=== PATIENT | male | born 1950 | race Caucasian/White ===

== ENCOUNTER → 2021-09-08 08:55 | Outpatient (BNVA) | payer MEDICARE, SELFPAY | PROVIDERS: Visit Provider Family Medicine | DX: I10 Essential (primary) hypertension (principal); Z12.5 Encounter for screening for malignant neoplasm of prostate | CPT/HCPCS: 80053; 80061; 84153; 85025 ==

== ENCOUNTER → 2022-02-24 09:36 | Outpatient (BNVA) | payer MEDICARE, SELFPAY | PROVIDERS: PCP Family Medicine; Visit Provider Internal Medicine Cardiovascular Disease | DX: I25.10 Atherosclerotic heart disease of native coronary artery without angina pectoris (principal); R07.89 Other chest pain; I10 Essential (primary) hypertension; I73.9 Peripheral vascular disease, unspecified; E78.5 Hyperlipidemia, unspecified; Z87.891 Personal history of nicotine dependence | CPT/HCPCS: 99204; 99205 ==

== ENCOUNTER 2022-07-12 12:15 | Outpatient (CLI) | payer MEDICARE, SELFPAY ==
--- NOTE | 2022-07-12 12:45 | USCV_ITS ---
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 TBI of 0.63 on the right and 0.56 on the left CONCLUSIONS Features suggestive of mild peripheral artery disease bilaterally. Dr Freddie Nair MD [facility] (Electronically Signed) Final Date: 12 July 2022 23:42 S
== END 2022-07-12 12:16 | disposition home or self-care (01) ==
LOC: RAD 12:17
PROVIDERS: PCP Family Medicine; Visit Provider Internal Medicine Cardiovascular Disease
DX: I73.9 Peripheral vascular disease, unspecified (principal)
CPT/HCPCS: 93922

== ENCOUNTER 2022-07-21 08:04 | Outpatient (CLI) | payer MEDICARE, SELFPAY ==
--- NOTE | 2022-07-21 | ECG_ITS ---
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 Interpretive Statements NAME OF STUDY: LEXISCAN SESTAMIBI STRESS TEST INDICATION: [cp] Procedure: At the baseline, the blood pressure was 155/78 mmHg with a heart rate of 64 bpm. The electrocardiogram showed normal sinus rhythm, normal axis with normal ST and T's. The Lexiscan was infused over a period of 20 seconds. A total of 0.4 mg of Lexiscan was infused. The stress phase was continued for a total of 5 minutes. Heart rate was at the end of stress phase was 90 bpm and a blood pressure of 144/75 mmHg. The EKG at the peak infusion revealed normal sinus rhythm with no significant ST-T wave changes. Sestamibi was injected 20 seconds after the Lexiscan infusion. Blood pressure at the end of recovery phase was 143/79 mmHg with a heart rate of 78 bpm. Conclusion: 1. Normal EKG response to Lexiscan infusion 2. No Lexiscan induced chest pain or cardiac arrhythmia. 3. Normal blood pressure and heart rate response. 4. Sestamibi/sestamibi perfusion scan pending; see separate report. Electronically Signed On 07-31-2022 20:59:27 CDT by Lester Sena M.D. [email or web address]
[2022-07-21 08:39] VITALS: BMI 33.8
--- NOTE | 2022-07-21 08:51 | NMCV_ITS ---
NM eufemia perf SPECT r/s* [id number] Dionisio Agarwal Age: 71 Gender: M : 1950 Exam Date: 07/21/2022 09:46 Ordering Phys: Pebbles Dominguez DO Technologist: SHONDA Dick Exam Location: [facility] Indications: CHEST PAIN STRESS TEST Please see separate stress test report in [facility]any for full findings IMAGE PROTOCOL Rest/Stress 1 Lexiscan Day Radiopharmaceutical Dose (mCi) Administration Site Administered by Rest: Tc-99m 11.0 IV SHONDA Quiroz Sestamibi Stress:Tc-99m 32.4 IV SHONDA Quiroz Sestamibi Rest: 21-Jul-2022 60 Discovery 630 Stress: 21-Jul-2022 30 Discovery 630 0.4mg Lexiscan. Images obtained in supine and prone position. SPECT RESULTS Technical Quality: Excellent Raw Data Analysis: Normal Image Corrections: No attenuation or motion correction applied Summed Stress Score: 3 Summed Rest Score: 0 Summed Difference Score: 3 PERFUSION FINDINGS There is a small in size reversible perfusion defect in inferolateral wall. This is consistent with small sized area of ischemia in left circumflex artery territory. FUNCTIONAL RESULTS (calculated via Gated SPECT) Stress Image LV EF (%): 74 Stress EDV (mL):80 TID: 1.2 Stress ESV (mL):21 FUNCTIONAL FINDINGS: There is normal left ventricular systolic function. IMPRESSIONS 1. Small sized area of ischemia seen in left circumflex artery territory. 2. LV systolic function is normal. Lester Sena MD (Electronically Signed) Final Date: 24 July 2022 22:12 S
[2022-07-21 10:41] VITALS: BP 143/79; PULSE 77
[2022-07-21] MEDS: regadenoson 0.4 Mg/5 ml Syringe IVP (10:43)
== END 2022-07-21 08:05 | disposition home or self-care (01) ==
PROVIDERS: Family Provider Internal Medicine Cardiovascular Disease; PCP Family Medicine; Visit Provider Family Medicine
DX: R07.9 Chest pain, unspecified (principal); I99.8 Other disorder of circulatory system
CPT/HCPCS: 78452; 93017; A9500; J2785

== ENCOUNTER → 2022-08-06 09:45 | Outpatient (BNVA) | payer MEDICARE, SELFPAY | PROVIDERS: Family Provider Internal Medicine Cardiovascular Disease; PCP Family Medicine; Visit Provider Internal Medicine Cardiovascular Disease | DX: I25.10 Atherosclerotic heart disease of native coronary artery without angina pectoris (principal); I10 Essential (primary) hypertension; E78.5 Hyperlipidemia, unspecified; I73.9 Peripheral vascular disease, unspecified; Z87.891 Personal history of nicotine dependence | CPT/HCPCS: 99214 ==

== ENCOUNTER 2023-03-18 09:43 | Outpatient (CLI) | payer MEDICARE, SELFPAY ==
--- NOTE | 2023-03-18 10:00 | CT_ITS ---
WS: [id number] LDCT LUNG CANCER SCREENING HISTORY: Former smoker TECHNIQUE: Axial imaging performed from the apices to 1 cm below the costophrenic angles. Coronal and sagittal reformats are submitted with axial MIP series. All CT scans at [facility] use at least one of these dose optimization techniques: automated exposure control; mA and/or kV adjustment per patient size (includes targeted exams where dose is matched to clinical indication); or iterativ e reconstruction. DLP: 80.79 mGy.cm DIvol: Mean CTDIvol: 1.60 (mGy) COMPARISON: None available. Diagnostic quality: Satisfactory Lungs: No pulmonary nodule or mass identified. Mild chronic emphysema. No endobronchial lesions. Heart: Normal size heart with no pericardial effusion.. Other findings: Mild atherosclerosis aorta. Normal size pulmonary artery. No adenopathy. Moderate cor onary artery calcification. Heavy calcification along the LEFT anterior descending coronary artery. S mall hiatal hernia. No adrenal mass. CT/CT lung screening [id number] IMPRESSION: LUNG-RADS: 1-Negative FOLLOW UP: 12 Month: Continue annual screening with LDCT OTHER FINDINGS (S MODIFIER): None.
== END 2023-03-18 09:44 | disposition home or self-care (01) ==
PROVIDERS: PCP Family Medicine; Visit Provider Internal Medicine Pulmonary Disease
DX: I25.10 Atherosclerotic heart disease of native coronary artery without angina pectoris (principal); E78.5 Hyperlipidemia, unspecified; I73.9 Peripheral vascular disease, unspecified; R07.89 Other chest pain; I10 Essential (primary) hypertension; Z87.891 Personal history of nicotine dependence
CPT/HCPCS: 71271; 99214

== ENCOUNTER 2023-05-29 16:26 | Emergency (ER) | payer MEDICARE, SELFPAY ==
[2023-05-29 16:35] VITALS: PULSE 138; RESP 16; TEMP 36.7; O2SAT 93; BMI 34.4
--- NOTE | 2023-05-29 16:41 | ED_ITS ---
HPI - Epistaxis General: Chief complaint: Epistaxis Stated complaint: nose bleeding for hours Time Seen by Provider: 05/29/23 16:41 History of Present Illness: 72-year-old gentleman on 81 mg of aspirin daily with history of nose surgery for polyp removal remotely presenting to the [facility] part for epistaxis. Began yesterday morning and always has been on the right. Appears to have had intermittent control however it has been bleeding profusely for the past few hours. Mild generalized malaise with it. Denies trauma though he has been instructed by ENT to do rinses. Denies any changes with that. No other specific changes in health, exacerbating, or alleviating factors identified. Onset (ago): hour(s) Duration: intermittent Review of Systems General: Reports: 10 or more systems reviewed and unremarkable except in HPI and below PFSH ED PFSH: Medical History Asthma CAD (coronary artery disease) Essential hypertension History of placement of stent in LAD coronary artery Hyperlipidemia PAD (peripheral artery disease) S/P angiogram of extremity Surgical History History of sinus surgery Family History Mother Asthma Alcoholic Liver cirrhosis Father Cancer stomach Sister Stroke Brother Diabetes Other Hypertension Social History Smoking and tobacco status: former smoker Quit status (tobacco): has quit using tobacco Year quit tobacco: 2009 Former quit date comment: 1ppd x 50 years Second hand smoke exposure: No Alcohol intake: current Alcohol intake frequency: 0-2 Drinks per Day Alcohol t ype: beer and wine Substance/Drug Use: never Adopted: No Caregiver/support person: No Lives independently: Yes Household members: spouse Housing: House Marital status: Number of children: 2 Highest education level completed: High School Graduate service: No Current occupational status: disabled Pets and animals: Yes Pets & animals: dog(s) Sexually active: Yes Do you think of yourself as: Straight/Heterosexual Current gender identity: Male Special ajay needs: No Physical Exam Const: COMMON NORMALS: alert GENERAL APPEARANCE: cooperative and well developed HENMT: COMMON NORMALS: normocephalic and atraumatic HEAD & SCALP: normocephalic and atraumatic OTHER: See MDM Eye: COMMON NORMALS: conjunctivae normal CONJUNCTIVA: Yes conjunctivae normal SCLERA: sclerae normal Neck/C-Spine: COMMON NORMALS: supple GENERAL: Yes trachea midline Resp: COMMON NORMALS: normal respiratory effort EFFORT & INSPECTION: Yes able to speak in complete sentences Cardio: COMMON NORMALS: regular rate and regular rhythm RATE: regular rate RHYTHM: regular rhythm GI: COMMON NORMALS: Soft to palpation PALPATION: Yes Soft to palpation and No Tenderness to palpation present (GI) Extremity: GENERAL: Yes normal exam except as noted and No edema Neuro: COMMON NORMALS: moves all extremities SENSORIUM/ORIENTATION: Yes alert and No Orientation impaired Psych: COMMON NORMALS: mental status grossly normal and Normal thought process present THOUGHT PROCESS: Normal thought process present Course Vital Signs: Vital signs: Vital Signs Temperature 98.1 F 05/29/23 16:35 Pulse Rate 82 05/29/23 18:37 Respiratory Rate 16 05/29/23 16:35 Blood Pressure 171/92 05/29/23 18:37 Pulse Oximetry 97 05/29/23 18:37 Oxygen Delivery Me thod Room Air 05/29/23 16:35 [facility] - Epistaxis Medical Decision Making 72-year-old gentleman presenting with epistaxis. He is noted to have severe right-sided epistaxis on exam. Initial conservative measures quickly became apparent to not have any effect. Therefore a Rhino Rocket was placed. This appears to have successful hemostasis. Labs with no significant hematologic or metabolic abnormalities. Coags normal. No occasion for imaging. Patient treated with antibiotic and analgesia. Hemostasis sustained on serial reexamination. The results of ED evaluation were discussed with the patient including prescriptions and/or symptomatic cares (if applicable) including appropriate and responsible use, followup plan, and return precautions. The patient verbalized understanding and felt safe for discharge. Medical Records I reviewed the patient's medical records. Lab Data I reviewed the patient's lab results. 05/29/23 17:05 05/29/23 17:05 Laboratory Results WBC 5.8 10^3/uL (4.0-10.0) 05/29/23 17:05 RBC 5.10 10^6/uL (4.1-5.3) 05/29/23 17:05 Hgb 15.4 g/dL (11.7-16.6) 05/29/23 17:05 Hct 46.4 % (42.0-52.0) 05/29/23 17:05 MCV 91.0 fl (80-94) 05/29/23 17:05 MCH 30.2 pg (28.0-34.0) 05/29/23 17:05 MCHC 33.2 g/dL (30.0-36.0) 05/29/23 17:05 RDW 12.9 % (12.1-15.1) 05/29/23 17:05 Plt Count 261 10^3/cmm (130-400) 05/29/23 17:05 MPV 9.0 fL (7.4-10.4) 05/29/23 17:05 Neut % (Auto) 61.2 % 05/29/23 17:05 Lymph % (Auto) 28.2 % 05/29/23 17:05 [place] % (Auto) 7.6 % 05/29/23 17:05 Eos % (Auto) 2.2 % 05/29/23 17:05 Baso % (Auto) 0.3 % 05/29/23 17:05 Neut # (Auto) 3.55 10^3/uL (1.8-7.7) 05/29/23 17:05 Lymph # (Auto) 1.6 10^3/uL (0.8-4.8) 05/29/23 17:05 [place] # (Auto) 0.4 10^3/uL (0.2-0.9) 05/29/23 17:05 Eos # (Auto) 0.1 10^3/uL (0.0-0.8) 05/29/23 17:05 Baso # (Auto) 0.0 10^3/uL (0.0-0.1) 05/29/23 17:05 Nucleated RBC % (auto) 0 % 05/29/23 17:05 Nucleated RBCs # 0.0 /100WBC 05/29/23 17:05 PT 13.60 SECONDS (12.1-14.9) 05/29/23 17:05 INR 1.01 (0.8-1.2) 05/29/23 17:05 Sodium 139 mmol/L (136-145) 05/29/23 17:05 Potassium 4.3 mmol/L (3.5-5.1) 05/29/23 17:05 Chloride 102 mmol/L (98-107) 05/29/23 17:05 Carbon Dioxide 25 mmol/L (22-29) 05/29/23 17:05 Anion Gap 16.3 (5-19) 05/29/23 17:05 BUN 12 mg/dL (8-23) 05/29/23 17:05 Creatinine 0.9 mg/dL (0.7-1.2) 05/29/23 17:05 GFR Calculation Not Reportable 05/29/23 17:05 Glucose 145 mg/dL (65-115) H 05/29/23 17:05 Calculated Osmolality 290 mOsm/kg (285-295) 05/29/23 17:05 Calcium 9.5 mg/dL (8.5-10.5) 05/29/23 17:05 Total Bilirubin 0.5 mg/dL (0.15-1.2) 05/29/23 17:05 AST 20 U/L (0-40) 05/29/23 17:05 ALT 19 U/L (0-41) 05/29/23 17:05 Alkaline Phosphatase 80 U/L (40-130) 05/29/23 17:05 Total Protein 7.1 g/dL (6.6-8.7) 05/29/23 17:05 Albumin 4.2 g/dL (3.5-5.2) 05/29/23 17:05 Globulin 2.9 g/dL (1.3-4.6) 05/29/23 17:05 Blood Type O Negative 05/29/23 17:05 Rho(D) Type Negative 05/29/23 17:05 Antibody Screen Negative 05/29/23 17:05 Discharge Plan Discharge Patient Disposition: Home Clinical Impression: Severe epistaxis Condition: Stable Prescriptions: No Action doxazosin 4 mg tablet 4 mg PO BID Qty: 180 3RF budesonide 0.5 mg/2 mL suspension for nebulization 0.5 mg inhalation BID Qty: 60 2RF Fasenra Pen 30 mg/mL auto-injector 30 mg SUBCUT .q 5 weeks Qty: 1 11RF Spiriva with HandiHaler 18 mcg capsule, w/inhalation device 1 cap inhalation DAILY Qty: 60 5RF Rx Instructions: puncture 1 cap using device; one dose = 2 inhalations nitroglycerin [Nitrostat] 0.4 mg tablet, sublingual 0.4 mg sublingual Q5M PRN (Reason: chest pain) Qty: 25 1RF Rx Instructions: do not exceed 3 doses per episode isosorbide mononitrate 10 mg tablet 10 mg PO DAILY PRN (Reason: elevted BP) Qty: 30 3RF Rx Instructions: Use if BP > 150/90 mm Hg, carvedilol 6.25 mg tablet 6.25 mg PO BID Qty: 180 2RF Rx Instructions: must administer with a meal/food fluticasone propion-salmeterol [Wixela Inhub] 500-50 mcg/dose blister with device 1 inh inhalation BID Qty: 60 5RF montelukast 10 mg tablet 10 mg PO DAILY Discharge Orders: Discharge ED (Routine); Ordered 05/29/23 Ordered By: Brandin Parks Referrals: Pebbles Dominguez DO [Primary Care Provider] - Discharge Diet: Usual diet Discharge Activity: Resume usual activity Patient Instructions: Nosebleed (ED) Activity Restrictions/Additional Instructions: Thank you for visiting the emergency department. You were seen and evaluated for severe nosebleed. This was treated with Rhino Rocket and we are pleased that you had control of your bleeding. Please call Dr. Topete's office in the morning for follow-up. Will prescribe prophylactic antibiotics. Avoid NSAIDs and you should stop aspirin for the next 5 day. You may use acetaminophen as long as nobody has told you to avoid this in the past. Return for recurrence or anything else that you are concerned about and feel needs emergency department evaluation. Coding Level of Care Code ED Pcb Design Engineer for Davion Mauricio
[2023-05-29] MEDS: oxymetazoline 0.05% Nasal Spray 15 mL 2 SPRAY NOSTRIL-B (16:54)
[2023-05-29 17:18] LABS: Basophils % 0.3 %; Eosinophils # 0.1 10^3/uL (0.0-0.8); Eosinophils % 2.2 %; Hematocrit 46.4 % (42.0-52.0); Hemoglobin 15.4 g/dL (11.7-16.6); Lymphocytes # 1.6 10^3/uL (0.8-4.8); Lymphocytes % 28.2 %; Mean Corpuscular HGB Conc 33.2 g/dL (30.0-36.0); Mean Corpuscular Hemoglobin 30.2 pg (28.0-34.0); Monocytes # 0.4 10^3/uL (0.2-0.9); Monocytes % 7.6 %; Neutrophils # 3.55 10^3/uL (1.8-7.7); Neutrophils % 61.2 %; Nucleated Red Blood Cells % 0 %; Platelet Count 261 10^3/cmm (130-400); Red Cell Distribution Width 12.9 % (12.1-15.1); White Blood Count 5.8 10^3/uL (4.0-10.0)
[2023-05-29] MEDS: sodium chloride 0.9% 1,000 ML 999 ML IV (17:44)
[2023-05-29] MEDS: morphine 4 mg/mL SDV 1 mL IVP (17:44)
[2023-05-29 17:51] LABS: Alanine Aminotransferase 19 U/L (0-41); Albumin Level 4.2 g/dL (3.5-5.2); Alkaline Phosphatase 80 U/L (40-130); Blood Urea Nitrogen 12 mg/dL (8-23); Calcium 9.5 mg/dL (8.5-10.5); Carbon Dioxide 25 mmol/L (22-29); Chloride 102 mmol/L (98-107); Globulin 2.9 g/dL (1.3-4.6); Glucose 145 mg/dL (65-115); Osmolality Calculated 290 mOsm/kg (285-295); Sodium 139 mmol/L (136-145); Total Bilirubin 0.5 mg/dL (0.15-1.2); Total Protein 7.1 g/dL (6.6-8.7)
[2023-05-29 17:52] LABS: Anion Gap 16.3 (5-19); Aspartate Amino Transferase 20 U/L (0-40); Potassium 4.3 mmol/L (3.5-5.1)
[2023-05-29 17:59] LABS: INR 1.01 (0.8-1.2)
[2023-05-29] MEDS: amoxicillin-clav 875-125 mg Tablet 1 TAB PO (18:21)
[2023-05-29 18:37] VITALS: BP 171/92; PULSE 82; O2SAT 97
== END 2023-05-29 18:39 | disposition home or self-care (01) ==
PROVIDERS: Emergency Provider Emergency Medicine; PCP Family Medicine
DX: R04.0 Epistaxis (principal)
CPT/HCPCS: 80053; 85025; 85610; 86850; 86900; 96374; 99284; J2270; J7030

== ENCOUNTER 2023-05-30 08:53 | Observation (INO) | payer MEDICARE, SELFPAY ==
[2023-05-30] VITALS (9 sets, daily range): BP systolic 132–210; BP diastolic 71–108; PULSE 72–126; RESP 16–20; TEMP 36.6–36.8; O2SAT 91–99; BMI 34.2
--- NOTE | 2023-05-30 09:46 | PC.NURSE ---
BILATERAL RHINO ROCKETS ATTEMPTED. RIGHT RHINO ROCKET PLACED SUCCESSFULL, LEFT RHINO ROCKET UNABLE TO PLACE DUE TO PREVIOUS SURGERY. PATIENT TOLERATED PROCEDURE WELL.
--- NOTE | 2023-05-30 10:20 | P.HP_ITS ---
Providers/Chief Complaint Admitting Physician: Dr. Luis Topete MD Otolaryngology, Head & Neck Surgery Primary Care Provider: Pebbles Dominguez DO Chief Complaint: nose bleed History of Present Illness Dionisio Agarwal is a 72 year old male who was well until yesterday when he developed spontaneous epistaxis from the right nostril. The patient was seen in the [facility] ER yesterday where he had a nasal pack placed. The patient was seen in my clinic this morning and was doing well - we planned to remove the packing in 3-5 days. The patient represented to the ER after his outpatient visit and I was consulted to assist in caring for Mr. Agarwal's nose bleed. The patient is o/w without c/o. He has a h/o prior nasal surgery for polyps in 2008 and takes a daily 81mg ASA after having a coronary stent placed several years ago. The patient is o/w without c/o. Review of Systems General: Reports: 10 or more systems reviewed and unremarkable except in HPI and below Medications/Allergies Home Medications Medication Instructions Recorded Confirmed Last Taken Type aspirin 81 mg tablet,delayed 81 mg PO DAILY 08/11/21 03/18/23 Unknown History release budesonide 0.5 mg/2 mL suspension 0.5 mg (2 mL) inhalation BID #60 mL 01/13/22 03/18/23 Unknown Rx for nebulization doxazosin 4 mg tablet 4 mg PO BID #180 tabs 08/06/22 03/18/23 Unknown Rx benralizumab 30 mg/mL subcutaneous 30 mg SUBCUT .q 5 weeks #1 mL 08/11/22 03/18/23 Unknown Rx auto-injector (Fasenra Pen) tiotropium bromide 18 mcg capsule 1 cap inhalation DAILY #60 02/21/23 03/18/23 Unknown Rx with inhalation device (Spiriva inhalations with HandiHaler) montelukast 10 mg tablet See Rx Instructions .Route 03/08/23 03/18/23 Unknown Rx .COMPLEX #90 tabs prednisone 5 mg tablet 5 mg PO DAILY PRN 03/18/23 03/18/23 Unknown History nitroglycerin 0.4 mg sublingual 0.4 mg sublingual Q5M PRN chest 03/22/23 Unknown Rx tablet (Nitrostat) pain #25 tabs isosorbide mononitrate 10 mg tablet 10 mg PO DAILY PRN elevted BP #30 03/25/23 Unknown Rx tabs carvedilol 6.25 mg tablet 6.25 mg PO BID #180 tabs 04/18/23 Unknown Rx fluticasone 500 mcg-salmeterol 50 1 inh inhalation BID #60 grams 05/26/23 Unknown Rx mcg/dose blistr powdr for inhalation (Wixela Inhub) amoxicillin 875 mg-potassium 1 tab PO BID #20 tabs 05/29/23 Unknown Rx clavulanate 125 mg tablet Allergies Allergy/AdvReac Type Severity Reaction Status Date / Time No Known Allergies Allergy Verified 05/29/23 16:35 PFSH Acute PFSH: Medical History Asthma CAD (coronary artery disease) Essential hypertension History of placement of stent in LAD coronary artery Hyperlipidemia PAD (peripheral artery disease) Surgical History History of sinus surgery Family History Mother Asthma Alcoholic Liver cirrhosis Father Cancer stomach Sister Stroke Brother Diabetes Other Hypertension Social History Smoking and tobacco status: former smoker Quit status (tobacco): has quit using tobacco Year quit tobacco: 2009 Former quit date comment: 1ppd x 50 years Second hand smoke exposure: No Alcohol intake: current Alcohol intake frequency: 0-2 Drinks per Day Alcohol type: beer and wine Substance/Drug Use: never Adopted: No Caregiver/support person: No Lives independently: Yes Household members: spouse Housing: House Marital status: Number of children: 2 Highest education level completed: High School Graduate service: No Current occupational status: disabled Pets and animals: Yes Pets & animals: dog(s) Sexually active: Yes Do you think of yourself as: Straight/Heterosexual Current gender identity: Male Special ajay needs: No Vitals/I&O/Wt Last Vital Signs Temp 98.2 F 05/30/23 09:01 Pulse 94 05/30/23 09:01 Resp 16 05/30/23 09:01 BP 175/92 05/30/23 09:01 Pulse Ox 96 05/30/23 09:01 O2 Del Method Room Air 05/30/23 09:01 Weight last 48 hrs Weight 84.822 kg A&P Assessment and plan (1) Severe epistaxis: Impression: Epistaxis, right sided, recurrent Plan: - Admit for observation - Rapid Rhino packing replaced with a standard double balloon pack that was filled with saline until the epistaxis stopped - TXA and pain meds given by Dr. Lainez - Hold ASA for now - O/W continue all preop medications - Stat CBC, CMP, and EKG Plan I was consulted to assist in controlling Mr. Agarwal's epistaxis. Attestations Medical Necessity Statement*: The patient was admitted for control of his epistaxis Coding Level of Care Code Acute Code for [facility] Fwd Diagnoses Severe epistaxis R04.0
[2023-05-30] MEDS: morphine 4 mg/mL SDV 1 mL IVP (10:27)
--- NOTE | 2023-05-30 10:37 | W.ED.EPISTAX ---
HPI - Epistaxis General: Chief complaint: Epistaxis Stated complaint: nose bleed Time Seen by Provider: 05/30/23 09:36 History of Present Illness: Patient presents to the ER with complaints of right-sided epistaxis. Patient does have a Rhino Rocket in. Patient presented to Dr. Nguyen's office earlier today where they gotten the bleeding to stop with any when he went to the pharmacy to get some pain medicine the bleeding started again and he came back here. Patient does have high blood pressure with a blood pressure 175/92. Patient has multiple clots on a towel and blood is dripping out of his nostril at a pretty good rate. Patient said he does not usually get nosebleeds. This nosebleed started yesterday when he had the Rhino Rocket placed and was better throughout the night but started bleeding again this morning. Patient does take an 81 mg aspirin for anticoagulation. Review of Systems General: Reports: 10 or more systems reviewed and unremarkable except in HPI and below PFSH ED PFSH: Medical History Asthma CAD (coronary artery disease) Essential hypertension History of placement of stent in LAD coronary artery Hyperlipidemia PAD (peripheral artery disease) Surgical History History of sinus surgery Family History Mother Asthma Alcoholic Liver cirrhosis Father Cancer stomach Sister Stroke Brother Diabetes Other Hypertension Social History Smoking and tobacco status: former smoker Quit status (tobacco): has quit using tobacco Year quit tobacco: 2009 Former quit date comment: 1ppd x 50 years Second hand smoke exposure: No Alcohol intake: current Alcohol intake frequency: 0-2 Drinks per Day Alcohol type: beer and wine Substance/Drug Use: never Adopted: No Caregiver/support person: No Lives independently: Yes Household members: spouse Housing: House Marital status: Number of children: 2 Highest education level completed: High School Graduate service: No Current occupational status: disabled Pets and animals: Yes Pets & animals: dog(s) Sexually active: Yes Do you think of yourself as: Straight/Heterosexual Current gender identity: Male Special ajay needs: No Physical Exam Const: COMMON NORMALS: no acute distress, patient oriented x3, no limitations, healthy appearing, alert and well nourished HENMT: COMMON NORMALS: normocephalic, atraumatic, hearing grossly normal bilaterally, external ears normal and Normal external nose present; nasal mucous membranes&turbinates abnorm (Copious amounts of bright red blood noted from the external nares region ar) HEAD & SCALP: normocephalic and atraumatic NOSE: Normal external nose present; nasal mucous membranes&turbinates abnorm (Copious amounts of bright red blood noted from the external nares region ar) EXTERNAL EAR: Yes external ears normal Neck/C-Spine: COMMON NORMALS: full ROM, no lymphadenopathy, supple, no meningeal signs, no JVD and Thyroid normal THYROID: Thyroid normal Chest: COMMONS NORMALS: normal inspection of the chest and normal palpation of entire chest wall Resp: COMMON NORMALS: normal respiratory effort, No retractions, No use of accessory muscles and clear to auscultation bilaterally AUSCULTATION: clear to auscultation bilaterally Cardio: COMMON NORMALS: no JVD, regular rate, regular rhythm, S1 normal heart sound present, S2 normal heart sound present, No gallops present (Cardio), No clicks present (Cardio), No murmurs present (Cardio) and No rub (Cardio) RATE: regular rate RHYTHM: regular rhythm HEART SOUNDS: S1 normal heart sound present and S2 normal heart sound present GI: COMMON NORMALS: Normal to inspection, nondistended, normoactive bowel sounds present, Soft to palpation, non-tender, No hepatosplenomegaly present and no masses PALPATION: Yes Soft to palpation and Yes No hepatosplenomegaly present Neuro: COMMON NORMALS: patient oriented x3 SENSORIUM/ORIENTATION: Yes alert MENINGEAL SIGNS: Yes no meningeal signs Course Vital Signs: Vital signs: Vital Signs Temperature 98.2 F 05/30/23 09:01 Pulse Rate 108 H 05/30/23 10:33 Respiratory Rate 17 05/30/23 10:27 Blood Pressure 210/108 05/30/23 10:33 Pulse Oximetry 91 05/30/23 10:33 Oxygen Delivery Me thod Room Air 05/30/23 10:33 MDM - Epistaxis Medical Decision Making Patient presents to the ER with a Rhino Rocket in place and a moderate epistaxis. Rhino Rocket was removed and a new one was placed with saline in both the anterior and posterior chambers of the Rhino Rocket to inflate it is much as patient can tolerate. Bleeding did slow down mildly but is definitely still bleeding a good amount. Dr. Topete ENT was consulted and came down to the ER and suction the nose and readjusted the Rhino Rocket. Patient will be given TXA. Lab work was obtained patient will be admitted to Dr. Topete Medical Records I reviewed the patient's medical records. Lab Data I reviewed the patient's lab results. 05/30/23 10:53 05/30/23 10:53 Laboratory Results WBC 6.3 10^3/uL (4.0-10.0) 05/30/23 10:53 RBC 4.07 10^6/uL (4.1-5.3) L 05/30/23 10:53 Hgb 12.3 g/dL (11.7-16.6) 05/30/23 10:53 Hct 37.1 % (42.0-52.0) L 05/30/23 10:53 MCV 91.2 fl (80-94) 05/30/23 10:53 MCH 30.2 pg (28.0-34.0) 05/30/23 10:53 MCHC 33.2 g/dL (30.0-36.0) 05/30/23 10:53 RDW 12.8 % (12.1-15.1) 05/30/23 10:53 Plt Count 201 10^3/cmm (130-400) 05/30/23 10:53 MPV 8.8 fL (7.4-10.4) 05/30/23 10:53 Neut % (Auto) 83.0 % 05/30/23 10:53 Lymph % (Auto) 11.4 % 05/30/23 10:53 [place] % (Auto) 4.9 % 05/30/23 10:53 Eos % (Auto) 0.0 % 05/30/23 10:53 Baso % (Auto) 0.2 % 05/30/23 10:53 Neut # (Auto) 5.23 10^3/uL (1.8-7.7) 05/30/23 10:53 Lymph # (Auto) 0.7 10^3/uL (0.8-4.8) L 05/30/23 10:53 [place] # (Auto) 0.3 10^3/uL (0.2-0.9) 05/30/23 10:53 Eos # (Auto) 0.0 10^3/uL (0.0-0.8) 05/30/23 10:53 Baso # (Auto) 0.0 10^3/uL (0.0-0.1) 05/30/23 10:53 Nucleated RBC % (auto) 0 % 05/30/23 10:53 Nucleated RBCs # 0.0 /100WBC 05/30/23 10:53 Discharge Plan Discharge Patient Disposition: Placed in Observation Clinical Impression: Recurrent epistaxis Condition: Stable Prescriptions: No Action aspirin 81 mg tablet,delayed release (DR/EC) 81 mg PO DAILY doxazosin 4 mg tablet 4 mg PO BID Qty: 180 3RF budesonide 0.5 mg/2 mL suspension for nebulization 0.5 mg inhalation BID Qty: 60 2RF Fasenra Pen 30 mg/mL auto-injector 30 mg SUBCUT .q 5 weeks Qty: 1 11RF Spiriva with HandiHaler 18 mcg capsule, w/inhalation device 1 cap inhalation DAILY Qty: 60 5RF Rx Instructions: puncture 1 cap using device; one dose = 2 inhalations nitroglycerin [Nitrostat] 0.4 mg tablet, sublingual 0.4 mg sublingual Q5M PRN (Reason: chest pain) Qty: 25 1RF Rx Instructions: do not exceed 3 doses per episode isosorbide mononitrate 10 mg tablet 10 mg PO DAILY PRN (Reason: elevted BP) Qty: 30 3RF Rx Instructions: Use if BP > 150/90 mm Hg, carvedilol 6.25 mg tablet 6.25 mg PO BID Qty: 180 2RF Rx Instructions: must administer with a meal/food fluticasone propion-salmeterol [Wixela Inhub] 500-50 mcg/dose blister with device 1 inh inhalation BID Qty: 60 5RF montelukast 10 mg tablet 10 mg PO DAILY Referrals: Pebbles Dominguez DO [Primary Care Provider] - Coding Level of Care Code ED [facility]ch [employer]ce [employer]aster for Denisseg Luly
--- NOTE | 2023-05-30 10:39 | PC.NURSE ---
DR BHATTI PRESENT. PATIENT GIVEN SUCTION FOR NOSE AND ORAL CLEAN OUT PER DR BHATTI. PATIENT IV PLACED AND TXA GIVEN. PATIENT TOLERATED WELL.
[2023-05-30] MEDS: hyDRALAzine 20 mg/mL INJ 1 mL IVP (10:42)
[2023-05-30 11:09] LABS: Basophils % 0.2 %; Hematocrit 37.1 % (42.0-52.0); Hemoglobin 12.3 g/dL (11.7-16.6); Lymphocytes # 0.7 10^3/uL (0.8-4.8); Lymphocytes % 11.4 %; Mean Corpuscular HGB Conc 33.2 g/dL (30.0-36.0); Mean Corpuscular Hemoglobin 30.2 pg (28.0-34.0); Mean Corpuscular Volume 91.2 fl (80-94); Mean Platelet Volume 8.8 fL (7.4-10.4); Monocytes # 0.3 10^3/uL (0.2-0.9); Monocytes % 4.9 %; Neutrophils # 5.23 10^3/uL (1.8-7.7); Nucleated Red Blood Cells % 0 %; Platelet Count 201 10^3/cmm (130-400); Red Blood Count 4.07 10^6/uL (4.1-5.3); Red Cell Distribution Width 12.8 % (12.1-15.1); White Blood Count 6.3 10^3/uL (4.0-10.0)
[2023-05-30] MEDS: lactated ringers 1,000 ML 125 ML IV (11:15)
[2023-05-30] MEDS: famotidine 20 mg/2 mL INJ IVP ×2 (11:31→23:05)
--- NOTE | 2023-05-30 11:42 | P.HP_ITS ---
Providers/Chief Complaint Admitting Physician: Hunter Peter MD Primary Care Provider: Pebbles Dominguez DO Chief Complaint: nose bleed History of Present Illness Dionisio Agarwal is a 72 year old male presenting to the emergency department with complaints of epistaxis. He reports this was first noted on Tuesday. He did come to the ER Tuesday, and was packed. He was going to see ENT today but started bleeding again. ENT evaluated in the emergency department and packed th e right nares. They are admitting him, and consulting medicine but would like us to be primary if appropriate. Patient himself reports bleeding has not stopped with packing. He denies any chest discomfort. 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 He has not had any since. At that time his nitroglycerin dose was adjusted. He denies any recent illness with cough or congestion. He has had no fevers. He did receive TXA in the emergency department. Review of Systems General: Reports: 10 or more systems reviewed and unremarkable except in HPI and below Card: Denies: chest pain (None since last cardiology appointment) or dyspnea on exertion GI: Reports: melena (Had 1 dark stool yesterday after swallowing blood with nosebleed); Denies: abdominal pain, nausea, vomiting or hematochezia Medications/Allergies Home Medications Medication Instructions Recorded Confirmed Last Taken Type aspirin 81 mg tablet,delayed 81 mg PO DAILY 08/11/21 05/30/23 05/29/23 History release budesonide 0.5 mg/2 mL suspension 0.5 mg (2 mL) inhalation BID #60 mL 01/13/22 05/30/23 05/29/23 Rx for nebulization doxazosin 4 mg tablet 4 mg PO BID #180 tabs 08/06/22 05/30/23 05/29/23 Rx benralizumab 30 mg/mL subcutaneous 30 mg SUBCUT .q 5 weeks #1 mL 08/11/22 05/30/23 Unknown Rx auto-injector (Fasenra Pen) tiotropium bromide 18 mcg capsule 1 cap inhalation DAILY #60 02/21/23 05/30/23 05/29/23 Rx with inhalation device (Spiriva inhalations with HandiHaler) nitroglycerin 0.4 mg sublingual 0.4 mg sublingual Q5M PRN chest 03/22/23 05/30/23 Unknown Rx tablet (Nitrostat) pain #25 tabs isosorbide mononitrate 10 mg tablet 10 mg PO DAILY PRN elevted BP #30 03/25/23 05/30/23 Unknown Rx tabs carvedilol 6.25 mg tablet 6.25 mg PO BID #180 tabs 04/18/23 05/30/23 05/30/23 Rx fluticasone 500 mcg-salmeterol 50 1 inh inhalation BID #60 grams 05/26/23 05/30/23 05/29/23 Rx mcg/dose blistr powdr for inhalation (Wixela Inhub) montelukast 10 mg tablet 10 mg PO DAILY 05/30/23 05/30/23 05/29/23 History Allergies Allergy/AdvReac Type Severity Reaction Status Date / Time No Known Allergies Allergy Verified 05/29/23 16:35 PFSH Acute PFSH: Medical History Asthma CAD (coronary artery disease) Essential hypertension History of placement of stent in LAD coronary artery Hyperlipidemia PAD (peripheral artery disease) Surgical History History of sinus surgery Family History Mother Asthma Alcoholic Liver cirrhosis Father Cancer stomach Sister Stroke Brother Diabetes Other Hypertension Social History Smoking and tobacco status: former smoker Quit status (tobacco): has quit using tobacco Year quit tobacco: 2009 Former quit date comment: 1ppd x 50 years Second hand smoke exposure: No Alcohol intake: current Alcohol intake frequency: 0-2 Drinks per Day Alcohol type: beer and wine Substance/Drug Use: never Adopted: No Caregiver/support person: No Lives independently: Yes Household members: spouse Housing: House Marital status: Number of children: 2 Highest education level completed: High School Graduate service: No Current occupational status: disabled Pets and animals: Yes Pets & animals: dog(s) Sexually active: Yes Do you think of yourself as: Straight/Heterosexual Current gender identity: Male Special ajay needs: No Vitals/I&O/Wt Last Vital Signs Temp 98.2 F 05/30/23 09:01 Pulse 92 05/30/23 11:29 Resp 17 05/30/23 10:27 BP 161/80 05/30/23 11:29 Pulse Ox 93 05/30/23 11:29 O2 Del Method Room Air 05/30/23 10:33 05/29/23 05/30/23 05/30/23 22:59 06:59 14:59 Intake Total 110 / 110 Balance 110 / 110 Weight last 48 hrs Weight 84.822 kg Physical Exam Narrative: General exam is white male, with Rhino Rocket. No evidence of active bleeding HEENT: See above. Normocephalic. Pupils equally round. Neck supple no lymphadenopathy thyromegaly Cardiovascular regular rate and rhythm without murmur Lungs clear no wheezing or crackles Abdomen is soft nontender positive bowel sounds. Obese. exams deferred Extremities no cyanosis, edema, cap refill brisk Skin no rash Neuro no obvious focal deficits Data 05/30/23 10:53 05/30/23 10:53 Other Labs: Electrolytes reviewed and normal I have ordered an EKG for baseline secondary to past history of coronary disease A&P Assessment and plan (1) Recurrent epistaxis: ENT has evaluated in the emergency department Appreciate ENT consultation Rhinmiranda Cha has been placed Hold aspirin Hydration with LR Avoid any anticoagulation Monitor for recurrent bleeding Observation currently CBC tomorrow to follow-up possibility of developing anemia, BMP tomorrow on IV fluids (2) Asthma-COPD overlap syndrome: Budesonide twice daily DuoNeb every 6 hours No evidence of exacerbation currently (3) CAD (coronary artery disease): Hold aspirin Continue Imdur, carvedilol. Obtain baseline EKG Will need to approach patient regarding why statin is not being given currently with history. It is not listed as allergy. (4) Essential hypertension: Continue carvedilol, doxazosin. Hydralazine as needed. Note elevated blood pressure on arrival to ER. I suspect this was situational. Plan Multiple other medical problems as outlined in past medical history SCDs for DVT prophylaxis. No pharmacologic anticoagulation as he is having epistaxis Full code Attestations Medical Necessity Statement*: May require less than 2 midnight stay for evaluation and treatment of epistaxis Diagnoses Recurrent epistaxis R04.0 Asthma-COPD overlap syndrome J44.9 CAD (coronary artery disease) I25.10 Essential hypertension I10 Time Spent (min) 49
[2023-05-30 11:44] LABS: Anion Gap 16.6 (5-19); Blood Urea Nitrogen 15 mg/dL (8-23); Calcium 8.8 mg/dL (8.5-10.5); Carbon Dioxide 22 mmol/L (22-29); Chloride 102 mmol/L (98-107); Glucose 126 mg/dL (65-115); Osmolality Calculated 286 mOsm/kg (285-295); Potassium 3.6 mmol/L (3.5-5.1); Sodium 137 mmol/L (136-145)
--- NOTE | 2023-05-30 11:47 | ECG_ITS ---
[facility] Test Date: 2023-05-30 Pat Name: Dionisio Agarwal Department: Room: Gender: Male Local Operator: : 1950 Requested By: Hunter Caceres Order Number: [id number] Kristie MD: Freddie Nair M.D. Measurements Intervals [place] Rate: 96 P: 0 OK: 0 QRS: -32 QRSD: 131 T: 118 QT: 397 QTc: 504 Interpretive Statements Multifocal atrial rhythm LEFT AXIS DEVIATION [QRS AXIS < -30] LEFT BUNDLE BRANCH BLOCK [120+ ms QRS DURATION, 80+ ms Q/S IN V1/V2, 85+ ms R IN I/aVL/V5/V6] No previous ECG available for comparison Electronically Signed On 05-30-2023 22:50:06 CDT by Freddie Nair M.D. [email or web address]
[2023-05-30] MEDS: lactated ringers 1,000 ML 100 ML IV ×2 (12:04→19:51)
--- NOTE | 2023-05-30 14:54 | PC.NURSE ---
Patient arrived to med/surg 266.
[2023-05-30] MEDS: LORazepam 2 mg/mL INJ 1 mL 1 MG IVP (15:17)
[2023-05-30] MEDS: HYDROcodone-acetaminophen 5-325 mg Tablet 1 TAB PO ×2 (15:28→21:25)
[2023-05-30] MEDS: carvedilol 6.25 mg Tablet PO (17:37)
[2023-05-30] MEDS: docusate sodium 100 mg Capsule PO (17:37)
[2023-05-30] MEDS: doxazosin 4 mg Tablet PO (17:37)
[2023-05-30] MEDS: acetaminophen 325 mg Tablet 650 MG PO (17:38)
--- NOTE | 2023-05-30 17:53 | PM.PN ---
Subjective Subjective: 72 yo wm who is day of admission for recurrent right sided epistaxis. The patient was on 81mg ASA prior to admission. He has a right nasal balloon pack in place and was given a dose of TXA in the ER. The patient reports that he is doing well, and has not had any bleeding since admission. He is o/w without c/o. Medications: Reviewed: Yes Vitals/I&O/Wt Last Vital Signs Temp 97.8 F 05/30/23 15:54 Pulse 108 H 05/30/23 15:54 Resp 16 05/30/23 15:54 BP 151/92 05/30/23 15:54 Pulse Ox 96 05/30/23 15:54 O2 Del Method Room Air 05/30/23 15:54 05/30/23 05/30/23 05/30/23 06:59 14:59 22:59 Intake Total 210 / 210 Balance 210 / 210 Weight last 48 hrs Weight 84.822 kg Physical Exam Const: COMMON NORMALS: no acute distress, patient oriented x3 and alert HENMT: COMMON NORMALS: normocephalic, atraumatic, external ears normal and Normal external nose present HEAD & SCALP: normocephalic and atraumatic FACE & SINUS: normal facial exam, face symmetric and other (Nasal packing in place on the right without bleeding.) NOSE: Normal external nose present EXTERNAL EAR: Yes external ears normal Eye: COMMON NORMALS: EOMs intact bilaterally and conjunctivae normal CONJUNCTIVA: Yes conjunctivae normal Neck/C-Spine: COMMON NORMALS: no lymphadenopathy Lymph: LYMPHATIC: no lymphadenopathy noted Chest: COMMONS NORMALS: normal inspection of the chest and normal palpation of entire chest wall Resp: COMMON NORMALS: normal respiratory effort and clear to auscultation bilaterally AUSCULTATION: clear to auscultation bilaterally Neuro: COMMON NORMALS: patient oriented x3 SENSORIUM/ORIENTATION: Yes alert Data 05/30/23 10:53 05/30/23 10:53 A&P Assessment and plan (1) Recurrent epistaxis: Impression: 1) Day of Admission for recurrent right sided epistaxis - doing well since placement of balloon packing in the right nasal cavity 2) Medical: Stable Plan 1) Continue nasal packing for 72 hours - consider removal at that point 2) As per Dr. Peter Attestations Medical Necessity Statement*: I was consulted to assist in control/treatment of the patient's uncontrolled right sided epistaxis. Coding Level of Care Code Acute Code for [facility] Fwd Diagnoses Recurrent epistaxis R04.0
[2023-05-30] MEDS: lanolin oint 7 gm 1 APPLIC TOPICAL (19:47)
[2023-05-30] MEDS: budesonide 0.5 mg/2 mL Neb INHALATION (20:32)
[2023-05-30] MEDS: ipratropium-albuterol 3 mL Neb INHALATION (20:32)
[2023-05-31] VITALS (8 sets, daily range): BP systolic 128–170; BP diastolic 67–94; PULSE 78–98; RESP 15–18; TEMP 36.4–36.7; O2SAT 96–98
--- NOTE | 2023-05-31 00:10 | PC.NURSE ---
BLEEDING Pt had some reoccurence of bleeding out of R nare. Says he thinks he moved too fast when nurse came in and woke him up for a med earlier. Dr Topete was notified and placed about 3 mls of saline into rhino rocket. Stopped when pt c/o pain with insertion. Held head back and ice pack to R nose. Trickling of blood down onto upper lip stopped. Will cont to monitor. Says he wishes the Dr just would have taken him to surgery and fixed it
[2023-05-31] MEDS: HYDROcodone-acetaminophen 5-325 mg Tablet 1 TAB PO ×3 (03:15→17:01)
[2023-05-31 05:15] LABS: Basophils % 0.2 %; Hematocrit 32.7 % (42.0-52.0); Hemoglobin 10.8 g/dL (11.7-16.6); Lymphocytes # 0.8 10^3/uL (0.8-4.8); Mean Corpuscular Hemoglobin 30.7 pg (28.0-34.0); Mean Corpuscular Volume 92.9 fl (80-94); Monocytes # 0.5 10^3/uL (0.2-0.9); Monocytes % 8.7 %; Neutrophils # 4.48 10^3/uL (1.8-7.7); Neutrophils % 76.8 %; Nucleated Red Blood Cells % 0 %; Platelet Count 182 10^3/cmm (130-400); Red Blood Count 3.52 10^6/uL (4.1-5.3); Red Cell Distribution Width 13.1 % (12.1-15.1); White Blood Count 5.8 10^3/uL (4.0-10.0)
--- NOTE | 2023-05-31 05:15 | P.PN_ITS ---
Subjective Subjective: 72 yo wm who is HD#2 for right sided epistaxis. The patient seems to be controlled with a right nasal balloon pack, but did experience brief bleeding last night. The patient is o/w without c/o. Medications: Reviewed: Yes Vitals/I&O/Wt Last Vital Signs Temp 97.6 F 05/31/23 04:00 Pulse 82 05/31/23 04:00 Resp 18 05/31/23 04:00 BP 151/77 05/31/23 04:00 Pulse Ox 98 05/31/23 04:00 O2 Del Method Room Air 05/30/23 20:32 05/30/23 05/30/23 05/31/23 14:59 22:59 06:59 Intake Total 210 / 210 1218.333 / 1428.333 200 / 1628.333 Balance 210 / 210 1218.333 / 1428.333 200 / 1628.333 Weight last 48 hrs Weight 84.822 kg Physical Exam Const: COMMON NORMALS: no acute distress, patient oriented x3 and alert HENMT: COMMON NORMALS: normocephalic, atraumatic and external ears normal HEAD & SCALP: normocephalic and atraumatic FACE & SINUS: normal facial exam and face symmetric NOSE: Other nasal findings present (Right nasal pack in place without bleeding.) EXTERNAL EAR: Yes external ears normal Eye: COMMON NORMALS: EOMs intact bilaterally, conjunctivae normal and no scleral icterus CONJUNCTIVA: Yes conjunctivae normal Neck/C-Spine: COMMON NORMALS: no lymphadenopathy and supple Lymph: LYMPHATIC: no lymphadenopathy noted Chest: COMMONS NORMALS: normal inspection of the chest Resp: COMMON NORMALS: normal respiratory effort, No retractions and clear to auscultation bilaterally AUSCULTATION: clear to auscultation bilaterally Cardio: COMMON NORMALS: regular rate, regular rhythm and No murmurs present (Cardio) RATE: regular rate RHYTHM: regular rhythm GI: COMMON NORMALS: Normal to inspection, nondistended, normoactive bowel sounds present Extremity: COMMON NORMALS: normal to inspection Neuro: COMMON NORMALS: patient oriented x3 SENSORIUM/ORIENTATION: Yes alert Data 05/30/23 10:53 05/30/23 10:53 A&P Assessment and plan (1) Recurrent epistaxis: Impression: 1) 72 yo wm who is HD#2 for right sided epistaxis that has been controlled with balloon packing 2) Medical: stable Plan Plan: 1) Continue balloon packing for another 24 hours. If there is no bleeding, we will remove and observe. If bleeding recurs, consider surgical endoscopic sphenopalatine artery ligation 2) As per Dr. Peter Attestations Medical Necessity Statement*: I was consulted to assist in the management of Mr. Agarwal's epistaxis. Coding Level of Care Code Acute Code for [facility] Fwd Diagnoses Recurrent epistaxis R04.0
[2023-05-31] MEDS: lactated ringers 1,000 ML 100 ML IV (05:30)
[2023-05-31 05:40] LABS: Alanine Aminotransferase 13 U/L (0-41); Albumin Level 3.7 g/dL (3.5-5.2); Alkaline Phosphatase 56 U/L (40-130); Anion Gap 13.7 (5-19); Aspartate Amino Transferase 16 U/L (0-40); Blood Urea Nitrogen 9 mg/dL (8-23); Calcium 8.3 mg/dL (8.5-10.5); Carbon Dioxide 25 mmol/L (22-29); Chloride 99 mmol/L (98-107); Globulin 1.8 g/dL (1.3-4.6); Glucose 103 mg/dL (65-115); Osmolality Calculated 277 mOsm/kg (285-295); Potassium 3.7 mmol/L (3.5-5.1); Sodium 134 mmol/L (136-145); Total Bilirubin 0.7 mg/dL (0.15-1.2); Total Protein 5.5 g/dL (6.6-8.7)
[2023-05-31] MEDS: carvedilol 6.25 mg Tablet PO (08:31)
[2023-05-31] MEDS: doxazosin 4 mg Tablet PO (08:31)
[2023-05-31] MEDS: montelukast sodium 10 mg Tablet PO (08:32)
[2023-05-31] MEDS: budesonide 0.5 mg/2 mL Neb INHALATION (08:44)
[2023-05-31] MEDS: ipratropium-albuterol 3 mL Neb INHALATION (08:45)
[2023-05-31] MEDS: amoxicillin-clav 875-125 mg Tablet 1 TAB PO (09:31)
--- NOTE | 2023-05-31 09:43 | PC.CHAP ---
Pastoral Care Encounter/Spiritual Assessment Type of Contact [] Declined dramatic reader visit [] Patient/Family/Request visit [] Outpatient visit [] Follow-up visit [] Physician referral [] Code/Alert []x Routine visit [] Staff referral [] Actively dying [] Patient sleeping [x] Family support [] [] Out of room [] Palliative care [] [] Receiving care in room [] Pre-surgical visit [] Trauma [] Long length of stay [] ICU visit [] Other: Relational/Emotional Strength [x] Patient feels connected with others/family/visitors/staff [] Distress [] Loneliness/isolation [] Abandonment Spirituality of Patient [] Person of Elyssa [] Attends Roman Catholic of their Elyssa [x] Believes in Prayer [] Reads Bible or Islam materials [] There are Spiritual issues to be addressed Biologist Interventions [x] Prayer [x] Active listening [x] Non-anxious presence [x] Spiritual/emotional support [] Crisis/trauma care [] Spiritual counseling [] Bereavement support [] Provided bereavement packet [] Provided Bible/devotional materials [] Provided toy/stuffed animal, coloring book to patient or family member [] Provided Communion [] Anointing/Bluejacket [] Salvation [x] Completed spiritual assessment [] Other: Impact on Illness or Injury [] Angry [] Fearful [] Anxious [] Often cries [] Exhaustion [] Unable to work [] Unable to attend quaker [] Unable to walk/stand [] Unable to read [] Unable to drive [] Unable to eat/drink [] Unable to sleep [] Unable to be with family [] Patient intubated [] Other: Summary Time spent with patient 5 min
--- NOTE | 2023-05-31 10:00 | PM.PN ---
Subjective Subjective: Dionisio something to eat. The Rhino Rocket is somewhat uncomfortable. He is wondering regarding the timing of surgery. Medications: Reviewed: Yes Vitals/I&O/Wt Last Vital Signs Temp 97.6 F 05/31/23 09:32 Pulse 87 05/31/23 09:32 Resp 18 05/31/23 09:32 BP 149/81 05/31/23 09:32 Pulse Ox 97 05/31/23 09:32 O2 Del Method Room Air 05/31/23 09:32 05/30/23 05/31/23 05/31/23 22:59 06:59 14:59 Intake Total 1218.333 / 1713.078 5311 / 2578.333 120 / 120 Balance 1218.333 / 3068.386 2837 / 2578.333 120 / 120 Weight last 48 hrs Weight 84.822 kg Physical Exam Narrative: General exam is white male, with Rhino Rocket. No evidence of active bleeding HEENT: See above. Normocephalic. Pupils equally round. Neck supple no lymphadenopathy thyromegaly Cardiovascular regular rate and rhythm without murmur Lungs clear no wheezing or crackles Abdomen is soft nontender positive bowel sounds. Obese. Extremities no cyanosis, edema, cap refill brisk Data 05/31/23 05:04 05/31/23 05:04 A&P Assessment and plan (1) Recurrent epistaxis: Appreciate ENT consultation Rhino Rocket has been placed possible removal tomorrow. If rebleeds ENT considering surgery Hold aspirin Reduce fluids Advance diet Avoid any anticoagulation Monitor for recurrent bleeding Observation currently Repeat CBC and BMP tomorrow. Need to monitor for worsening anemia following nosebleed (2) Asthma-COPD overlap syndrome: Budesonide twice daily DuoNeb every 6 hours No evidence of exacerbation currently (3) CAD (coronary artery disease): Hold aspirin Continue Imdur, carvedilol. EKG was obtained.Multifocal atrial rhythm, left bundle Will need to approach patient regarding why statin is not being given currently with history. It is not listed as allergy. (4) Essential hypertension: Continue carvedilol, doxazosin. Hydralazine as needed. Note elevated blood pressure on arrival to ER. I suspect this was situational. Blood pressure has improved from ER Plan Multiple other medical problems as outlined in past medical history SCDs for DVT prophylaxis. No pharmacologic anticoagulation as he is having epistaxis Full code Multiple patient questions and concerns were addressed. Attestations Medical Necessity Statement*: Needs continued observation, in regards to recurrent nosebleed currently with Rhino Rocket with plans to remove tomorrow Diagnoses Recurrent epistaxis R04.0 Asthma-COPD overlap syndrome J44.9 CAD (coronary artery disease) I25.10 Essential hypertension I10 Time Spent (min) 35
[2023-05-31] MEDS: famotidine 20 mg/2 mL INJ IVP (11:24)
[2023-05-31] MEDS: ondansetron 2 mg/ML SDV 2 mL 4 MG IVP (12:40)
--- NOTE | 2023-05-31 17:57 | PC.NURSE ---
Pt wanted to leave AMA. Patient was informed of the risks. Dr. Davenport and Dr. Topete were notified.
--- NOTE | 2023-06-01 06:52 | W.PM.EVENTAC ---
Event Note Event Note: Called last night with patient wanting to leave AMA. Patient had inferred he might come to this decision when I visited with him earlier this morning. I was able to speak with nursing who related risks of and or permanent disability with the patient prior to him leaving.
== END 2023-05-31 17:45 | disposition left against medical advice (07) ==
LOC: ER 11:24 → ER IP 12:20 → MEDSURG 14:32
PROVIDERS: Admitting Provider Specialist; Emergency Provider Emergency Medicine; PCP Family Medicine; Visit Provider Internal Medicine
DX: R04.0 Epistaxis (principal); E78.5 Hyperlipidemia, unspecified; I10 Essential (primary) hypertension; J44.9 Chronic obstructive pulmonary disease, unspecified; I25.10 Atherosclerotic heart disease of native coronary artery without angina pectoris; I44.7 Left bundle-branch block, unspecified; Z79.899 Other long term (current) drug therapy; Z79.82 Long term (current) use of aspirin; Z87.891 Personal history of nicotine dependence; Z95.5 Presence of coronary angioplasty implant and graft
CPT/HCPCS: 30903; 30905; 36415; 80048; 80053; 85025; 93005; 94640; 96361; 96365; 96375; 99285; G0378; J0360; J2060; J2270; J2405; J3490; J7120; J7626

== ENCOUNTER 2023-06-02 07:53 | Emergency (ER) | payer MEDICARE, SELFPAY ==
[2023-06-02 08:29] VITALS: BP 153/76; PULSE 85; RESP 15; TEMP 36.7; O2SAT 93
[2023-06-02 11:40] LABS: INR 1.02 (0.8-1.2)
[2023-06-02 11:41] LABS: Partial Thromboplastin Time 37.5 SECONDS (23.9-36.7)
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
[2023-06-02 11:59] LABS: Alanine Aminotransferase 24 U/L (0-41); Albumin Level 3.4 g/dL (3.5-5.2); Alkaline Phosphatase 66 U/L (40-130); Anion Gap 14.6 (5-19); Aspartate Amino Transferase 26 U/L (0-40); Blood Urea Nitrogen 7 mg/dL (8-23); Calcium 9.1 mg/dL (8.5-10.5); Carbon Dioxide 25 mmol/L (22-29); Chloride 96 mmol/L (98-107); Glucose 99 mg/dL (65-115); Osmolality Calculated 272 mOsm/kg (285-295); Potassium 3.6 mmol/L (3.5-5.1); Sodium 132 mmol/L (136-145); Total Bilirubin 0.8 mg/dL (0.15-1.2); Total Protein 6.4 g/dL (6.6-8.7)
[2023-06-02 12:34] LABS: Basophils % 0.1 %; Hematocrit 34.5 % (42.0-52.0); Hemoglobin 11.4 g/dL (11.7-16.6); Lymphocytes # 0.8 10^3/uL (0.8-4.8); Lymphocytes % 10.9 %; Mean Corpuscular Hemoglobin 30.5 pg (28.0-34.0); Mean Corpuscular Volume 92.2 fl (80-94); Mean Platelet Volume 9.3 fL (7.4-10.4); Monocytes # 0.7 10^3/uL (0.2-0.9); Monocytes % 9.2 %; Neutrophils % 79.3 %; Nucleated Red Blood Cells % 0 %; Platelet Count 199 10^3/cmm (130-400); Red Blood Count 3.74 10^6/uL (4.1-5.3); Red Cell Distribution Width 14.3 % (12.1-15.1); White Blood Count 7.6 10^3/uL (4.0-10.0)
--- NOTE | 2023-06-02 13:00 | DCPLANNER ---
Addendum entered by Wandy Flynn 06/07/23 15:35: Patient attended appointment scheduled with ENT. Original Note: laboratory manager had message to schedule a follow up appointment for patient with ENT. laboratory manager sent patients information to the front office staff at ENT. Patients information will be printed and reviewed. Clinic will call patient with appointment information.
== END 2023-06-02 12:49 | disposition home or self-care (01) ==
PROVIDERS: Emergency Provider Nurse Practitioner Family; PCP Family Medicine
DX: R04.0 Epistaxis (principal); Z87.891 Personal history of nicotine dependence; I25.10 Atherosclerotic heart disease of native coronary artery without angina pectoris; I10 Essential (primary) hypertension; E78.5 Hyperlipidemia, unspecified
CPT/HCPCS: 80053; 85025; 85610; 85730; 99283

== ENCOUNTER → 2023-06-06 08:29 | Outpatient (BNVA) | payer MEDICARE, SELFPAY | PROVIDERS: PCP Family Medicine; Visit Provider Otolaryngology | DX: R04.0 Epistaxis (principal) | CPT/HCPCS: 99203 ==

== ENCOUNTER → 2023-06-16 15:23 | Outpatient (BNVA) | payer MEDICARE, SELFPAY | PROVIDERS: PCP Family Medicine; Visit Provider Nurse Practitioner Family | DX: I10 Essential (primary) hypertension (principal); I25.10 Atherosclerotic heart disease of native coronary artery without angina pectoris; I44.7 Left bundle-branch block, unspecified; Z87.891 Personal history of nicotine dependence; I49.3 Ventricular premature depolarization | CPT/HCPCS: 93005; 99214 ==

== ENCOUNTER → 2023-09-08 13:11 | Outpatient (BNVA) | payer MEDICARE, SELFPAY | PROVIDERS: PCP Family Medicine; Visit Provider Internal Medicine Pulmonary Disease | DX: J45.30 Mild persistent asthma, uncomplicated (principal); J30.2 Other seasonal allergic rhinitis; Z87.891 Personal history of nicotine dependence; Z95.5 Presence of coronary angioplasty implant and graft; J32.4 Chronic pansinusitis; J44.9 Chronic obstructive pulmonary disease, unspecified; Z12.2 Encounter for screening for malignant neoplasm of respiratory organs | CPT/HCPCS: 99214 ==

== ENCOUNTER 2023-10-20 16:07 | Outpatient (CLI) | payer MEDICARE, SELFPAY ==
--- NOTE | 2023-10-20 16:45 | MR_ITS ---
WS: [id number] MRI HEAD WITHOUT CONTRAST TECHNIQUE: Sagittal T1, T2 axial, T2 axial FLAIR, axial and coronal T1 images, axial susceptibility w eighted imaging, axial diffusion weighted images, and coronal T2 images were obtained. CLINICAL INFORMATION: headache COMPARISON: None. FINDINGS: No evidence of restricted diffusion to suggest acute ischemia. Mild to moderate small vesse l changes. Mild parenchymal volume loss. Normal posterior fossa. Normal vascular flow voids at the sk ull base. No extra-axial fluid collections. No evidence of mass or mass effect. Mild to moderate circ umferential mucosal thickening involving the paranasal sinuses. Normal posterior nasopharynx. Mild mu cosal thickening in the mastoid tips. No hemosiderin on the susceptibly weighted images. Normal optic chiasm and pituitary infundibulum. Mi ld symmetric atrophy temporal lobes and hippocampal formations. Recent postoperative changes paranasa l sinus surgery with bilateral maxillary antrostomies and ethmoidectomies. IMPRESSION: 1. No evidence of restricted diffusion to suggest acute ischemia. 2. Mild to moderate small vessel changes. Mild parenchymal volume loss. 3. Mild to moderate mucosal thickening involving the paranasal sinuses. 4. No hemosiderin on the susceptibly weighted images. 5. Mild symmetric atrophy temporal lobes hippocampal formations. 6. Recent postoperative changes paranasal sinus surgery with bilateral maxillary antrostomies and et hmoidectomies.
== END 2023-10-20 16:08 | disposition home or self-care (01) ==
LOC: RAD 16:08
PROVIDERS: Visit Provider Family Medicine
DX: R51.9 Headache, unspecified (principal); I67.89 Other cerebrovascular disease; Z98.890 Other specified postprocedural states
CPT/HCPCS: 70551

== ENCOUNTER → 2024-11-13 07:54 | Outpatient (BNVA) | payer MEDICARE, SELFPAY | PROVIDERS: PCP Family Medicine; Visit Provider Student in an Organized Health Care Education/Training Program | DX: M72.0 Palmar fascial fibromatosis [Dupuytren] (principal); R03.0 Elevated blood-pressure reading, without diagnosis of hypertension | CPT/HCPCS: 73130; 99204 ==

== ENCOUNTER → 2025-03-06 15:10 | Outpatient (BNVA) | payer MEDICARE, SELFPAY | PROVIDERS: PCP Family Medicine; Visit Provider Student in an Organized Health Care Education/Training Program | DX: M72.0 Palmar fascial fibromatosis [Dupuytren] (principal) | CPT/HCPCS: 20527; 99214; J0775 ==

== ENCOUNTER 2025-03-08 12:57 | Outpatient (CLI) | payer MEDICARE, SELFPAY | END 2025-03-08 12:58 | disposition home or self-care (01) | LOC: SOT 12:59 | PROVIDERS: PCP Family Medicine; Visit Provider Student in an Organized Health Care Education/Training Program | DX: Z47.89 Encounter for other orthopedic aftercare (principal); M72.0 Palmar fascial fibromatosis [Dupuytren] | CPT/HCPCS: 26341; 97760; 99214; L3923 ==

== ENCOUNTER → 2025-04-17 08:49 | Outpatient (BNVA) | payer MEDICARE, SELFPAY | PROVIDERS: PCP Family Medicine; Visit Provider Student in an Organized Health Care Education/Training Program | DX: M72.0 Palmar fascial fibromatosis [Dupuytren] (principal) | CPT/HCPCS: 99213 ==

== ENCOUNTER → 2025-08-20 11:00 | Outpatient (BNVA) | payer MEDICARE, SELFPAY | PROVIDERS: PCP Family Medicine; Visit Provider Family Medicine | DX: E55.9 Vitamin D deficiency, unspecified (principal); I10 Essential (primary) hypertension; N40.1 Benign prostatic hyperplasia with lower urinary tract symptoms; N13.8 Other obstructive and reflux uropathy; J44.9 Chronic obstructive pulmonary disease, unspecified; E78.2 Mixed hyperlipidemia; I25.84 Coronary atherosclerosis due to calcified coronary lesion; I25.10 Atherosclerotic heart disease of native coronary artery without angina pectoris; R79.89 Other specified abnormal findings of blood chemistry; Z12.5 Encounter for screening for malignant neoplasm of prostate | CPT/HCPCS: 80053; 80061; 82306; 82607; 83721; 84439; 84443; 85025; G0103 ==